=== PATIENT | female | born 1960 | race Caucasian/White ===

== ENCOUNTER 2017-06-08 20:22 | Emergency (ER) | payer OTHER ==
[~2017-06-08] VITALS: Ht 162.6 cm; Wt 71.2 kg
[2017-06-08 21:28] LABS: HEMATOCRIT 37.4 % (36.0-46.0); MCH 29.8 PG (29.0-34.0); MCHC 35.3 G/DL (30.0-36.0); MCV 84.4 FL (83-99); PLATELET COUNT 202 K/uL (156-360); RBC DIS.WIDTH-CV 12.7 % (11.8-14.6); RBC DIS.WIDTH-SD 39.3 % (39-53); RED BLOOD COUNT 4.43 M/uL (3.80-5.20); WHITE BLOOD COUNT 4.9 K/uL (4.1-10.2)
[2017-06-08 21:36] LABS: CHLORIDE 104 mEq/L (99-109); MAGNESIUM 1.8 mg/dL (1.3-2.7); POTASSIUM 3.6 mEq/L (3.7-5.4); SODIUM 139 mEq/L (136-147)
[2017-06-08 21:37] LABS: GLUCOSE 98 mg/dL (70-99)
[2017-06-08 21:39] LABS: ANION GAP 15 MEQ/L (2-14)
[2017-06-08 21:41] LABS: GFR ESTIMATE (CALCULATED) > 59 mL/min/
[2017-06-08 21:42] LABS: UREA NITROGEN (BUN) 8 mg/dL (9-23)
[2017-06-08 21:49] LABS: TROP-I INTERPRETATION NEGATIVE; TROPONIN-I < 0.01 ng/mL (0.0-0.30)
[2017-06-08 22:48] VITALS: BP 116/76
[2017-06-08] MEDS ORDERED: METOPROLOL SUCC50 MG PO (22:50)
== END 2017-06-08 22:50 | disposition home or self-care (01) ==
LOC: EME → EDBD 20:22 → EME 20:22
DX: I49.3 Ventricular premature depolarization (principal); E86.0 Dehydration; Z87.891 Personal history of nicotine dependence
CPT/HCPCS: 71020; 80048; 83735; 84484; 85027; 93005; 99281; 99284; J7030